=== PATIENT | female | born 1955 | race Caucasian/White ===

== ENCOUNTER → 2019-08-08 13:44 | Outpatient (CLI) | payer BC, SELFPAY ==
--- NOTE | 2019-08-08 | DI.MRI.S_ITS ---
PROCEDURE: MR WRIST RT WO/W CON INDICATIONS: RIGHT WRIST PAIN TECHNIQUE: Noncontrast coronal proton density fast spin echo and T2 fast spin echo with fat saturation; coronal 3-D gradient echo, axial T1 spin echo and T2 fast spin echo with fat saturation, axial T1 spin echo with fat saturation, sagittal T1 spin echo through the wrist. Post-contrast axial, coronal, and sagittal T1 spin echo with fat saturation through the wrist. COMPARISON: None. FINDINGS: Image quality: Excellent. Bones and cartilage: No suspicious osseous enhancement. The carpal bones are normally aligned. No bone marrow contusions or fractures. No evidence for avascular necrosis. Overlying cartilage surfaces appear normal. Carpal ligaments: The scapholunate and lunotriquetral ligaments appear intact. In the absence of intra-articular contrast, the extrinsic carpal ligaments are not well identified. On sagittal images, the pisohamate ligament appears intact. Triangular fibrocartilage complex: The triangular fibrocartilage appears intact. The adjacent meniscal homolog appears normal in the absence of intra-articular contrast. The extensor carpi ulnaris tendon is normal in location and morphology. Tendons and soft tissues: There is a slightly lobulated and predominantly T2 hyperintense and T1 hypointense lesion with well-defined capsule is soft tissue over ulnar aspect of right wrist and measures up to 2.5 x 2.5 x 3.6 cm in its largest transverse, AP and craniocaudal dimensions. After IV contrast infusion, there is fairly homogeneous contrast enhancement within this structure. There is mass effect on the adjacent flexor carpi ulnaris tendon and flexor digitorum profundus tendon. The carpal tunnel structures appear normal, including the median nerve. The ulnar nerve appears normal within Guyon's canal. All six extensor tendon compartments demonstrate normal morphology, without pathologic tendon sheath fluid. IMPRESSION: 1. Encapsulated and fairly homogeneously enhancing soft tissue mass over ulnar aspect of right wrist measures 2.5 x 2.5 x 3.6 cm in size with mass effect on the adjacent flexor tendons as above. 2. No underlying tendon or muscle involvement is seen. No adjacent osseous involvement is noted. No marrow edema. No fracture or dislocation. No abnormal intraosseous enhancement. 3. Wrist tendons and ligaments are grossly intact. Angula fibrocartilage complex is grossly intact. Consider excisional biopsy of this lesion for more definitive diagnosis. Dictated by: Vincenzo Powell M.D. on 08/08/2019 at 16:50 Approved by: Vincenzo Powell M.D. on 08/08/2019 at 16:59
== END ==
PROVIDERS: Referring Provider Orthopaedic Surgery; Visit Provider Orthopaedic Surgery
DX: M25.531 Pain in right wrist (principal); M25.831 Other specified joint disorders, right wrist
CPT/HCPCS: 73223; A9579

== ENCOUNTER → 2020-01-07 12:30 | Outpatient (CLI) | payer BC, SELFPAY ==
--- NOTE | 2020-01-07 | DI.MRI.S_ITS ---
PROCEDURE: MR CERVICAL SPINE WO CON INDICATIONS: Neurofibromatosis, unspecified TECHNIQUE: Noncontrast sagittal T1 spin echo and T2 fast spin echo, sagittal STIR, foraminal oblique sagittal T2 fast spin echo, and axial gradient echo or T2 fast spin echo through the cervical spine. COMPARISON: None. FINDINGS: Image quality: Excellent. Alignment and Curvature: There is C4-C5 anterolisthesis Bone Marrow: Mild reactive endplate changes noted adjacent C4-C5, C5-C6, C6-C7 and C7-T1 discs. Spinal Cord: Visualized spinal cord has normal size and signal. No cerebellar tonsillar herniation. Paraspinous Soft Tissues: No paravertebral masses. Prevertebral soft tissues are normal in thickness. C2-C3: Loss of disc signal. Mild bilateral facet hypertrophy. No central stenosis. Mild bilateral neural foraminal narrowing. No neural compression. C3-C4: Loss of disc signal. Mild, diffuse disc bulge. Mild bilateral facet hypertrophy. No central stenosis. Severe bilateral neural foraminal narrowing with compression of the exiting C4 nerve roots. C4-C5: Loss of disc signal. Mild, diffuse disc bulge. Moderate right and mild left facet hypertrophy. Mild bilateral uncovertebral joint hypertrophy. Moderate narrowing of the central canal. Severe bilateral neural foraminal narrowing with compression of the exiting C5 nerve roots. C5-C6: Loss of disc signal and height. Moderate, diffuse disc bulge. Mild bilateral facet hypertrophy. Moderate right and mild left uncovertebral joint hypertrophy. Moderate narrowing of the central canal. Severe right and moderate left neural foraminal narrowing with compression of the exiting right C6 nerve root. C6-C7: Loss of disc signal and height. Mild to moderate diffuse disc bulge. Mild bilateral facet hypertrophy. Mild bilateral uncovertebral joint hypertrophy. Moderate narrowing of the central canal. Moderate bilateral neural foraminal narrowing. No neural compression. C7-T1: Loss of disc signal. Mild, diffuse disc bulge. No central stenosis. Mild bilateral facet hypertrophy. Mild right and moderate left neural foraminal narrowing. No neural compression. IMPRESSION: 1. Multilevel degenerative disc disease. 2. Multilevel facet and uncovertebral arthropathy. 3. No significant central canal narrowing. 4. Severe bilateral C3-C4 and C4-C5 neural foraminal narrowing with compression of the exiting bilateral C4 nerve roots and exiting bilateral C5 nerve roots. Severe right C5-C6 neural foraminal narrowing with compression of the exiting right C6 nerve root Dictated by: Alicia Goodrich MD, PhD on 01/09/2020 at 12:41 Approved by: Alicia Goodrich MD, PhD on 01/09/2020 at 12:53
== END ==
PROVIDERS: PCP Nurse Practitioner Gerontology; Referring Provider Orthopaedic Surgery Orthopaedic Surgery of the Spine; Visit Provider Orthopaedic Surgery Orthopaedic Surgery of the Spine
DX: Q85.00 Neurofibromatosis, unspecified (principal); M50.31 Other cervical disc degeneration, high cervical region; M48.02 Spinal stenosis, cervical region; M47.812 Spondylosis without myelopathy or radiculopathy, cervical region; M43.12 Spondylolisthesis, cervical region
CPT/HCPCS: 72141

== ENCOUNTER → 2021-06-07 10:08 | Outpatient (CLI) | payer BC, SELFPAY ==
--- NOTE | 2021-06-07 10:10 | DI.MRI.S_ITS ---
PROCEDURE: MR LOWER LEG LT WO/W CON INDICATIONS: LEFT LEG NEUROPATHIC PAIN TECHNIQUE: Noncontrast coronal T1 spin echo and STIR, sagittal T1 spin echo with fat saturation and STIR, axial T1 spin echo and T2 fast spin echo with fat saturation. After the administration of contrast, axial/sagittal/coronal T1 spin echo with fat saturation through the right thigh. COMPARISON: None. FINDINGS: Image quality: Excellent. Bones: Mild to moderate left hip joint osteoarthritic changes are seen. There is no fracture or dislocation. No marrow edema is seen. No evidence of avascular necrosis of femoral head. The overlying cortex appears intact. No periosteal reaction. No abnormal intraosseous enhancement. Soft tissues: There is a well-circumscribed oval T2 hyperintense and T1 hypointense structure seen in deep soft tissue of posterior left upper thigh and measures up to 1.1 x 0.9 x 1.3 cm in size series 7, image 35 and series 11, image 7. This lesion is situated between semitendinosis and long head of biceps femorals muscle without definite adjacent muscle involvement. There is also a well-circumscribed T2 hyperintense and T1 hypointense structure within vastus medialis muscle and measures 0.9 x 0.7 x 1 cm in size without adjacent muscle signal abnormality series 8, image 26 and series 11, image 16. There is suggestion of enhancement seen in the above-mentioned structures. Rest of the scanned muscles demonstrate normal overall bulk and internal signal. No other area of abnormal soft tissue enhancement. IMPRESSION: 1. 2 oval well-circumscribed T2 hyperintense and T1 hypointense structure seen in posterior upper thigh soft tissue and within distal left vastus medialis muscle as described above. There is suggestion of homogeneous enhancement in the above-mentioned structures. Finding may represent soft tissue and intramuscular ganglion given patient's history of neuropathic pain. No other enhancing soft tissue lesion is seen. No other muscle or tendon signal abnormality is noted. 2. Left hip and left knee joint osteoarthritis. No suspicious intraosseous lesion or abnormal intraosseous enhancement. No evidence of avascular necrosis of femoral head. Dictated by: Vincenzo Powell M.D. on 06/10/2021 at 8:40 Approved by: Vincenzo Powell M.D. on 06/10/2021 at 8:59
--- NOTE | 2021-06-07 10:10 | DI.MRI.S_ITS ---
PROCEDURE: MR LUMBAR SPINE WO/W CON INDICATIONS: LEFT LEG NEUROPATHIC PAIN TECHNIQUE: Noncontrast sagittal T1 spin echo and T2 fast spin echo, sagittal STIR, axial T1 and T2 fast spin echo through the lumbar spine. In cases with scoliosis, additional coronal T2 fast spin echo may be performed. After the administration of contrast, sagittal and axial T1 spin echo with fat saturation through the lumbar spine. COMPARISON: None. FINDINGS: Image quality: Excellent. Alignment and curvature: Mild levoconvex scoliotic curvature is noted. Minimal L2-L3 anterolisthesis is seen. There is minimal retrolisthesis at L3-L4. Mild grade 1 anterolisthesis is seen at the L5-S1 level. A left-sided pars defect is suspected, yet not well seen. Marrow: Marrow is of normal overall signal. No acute vertebral body compression fractures. No suspicious marrow enhancement. Spinal cord: Conus medullaris terminates at the L1 level. Visualized spinal cord demonstrates normal signal, without suspicious enhancement. Enhancing intradural, extramedullary nodules are seen amongst the nerve roots of the cauda equina, which are best demonstrated on the sagittal postcontrast images, as on series 11 image 10, with 1 nodule seen at the inferior L1 level measuring 8 mm and an additional smaller nodule measuring 3-4 mm at the inferior L2 level. Paraspinous soft tissues: Within the left paraspinous musculature, as on series 12, image 22, there is a nodule which is hyperintense on postcontrast T1 weighted imaging and measures 2.3 x 2.1 cm in greatest axial dimension, with a craniocaudal extent of 2.9 cm. This nodule is only minimally hyperintense on T2 weighted images. T12-L1: Normal appearance. L1-L2: Normal appearance. L2-L3: Mild loss of disc height is seen. Loss of disc signal is seen. Moderate disc bulge is seen. There is a superimposed central disc protrusion. At least moderate facet hypertrophy is seen. There is moderate right-sided and moderate to severe left-sided neural foraminal narrowing seen. At least moderate central canal narrowing is seen, as on series 6, image 16. L3-L4: There is at least moderate loss of disc height and disc signal seen. Moderate disc bulge is seen. There is a superimposed central disc protrusion. At least moderate facet hypertrophy is seen. There is moderate to severe right-sided neural foraminal narrowing seen, with associated compression upon the exiting right L3 nerve root. There is moderate left-sided neural foraminal narrowing seen. Moderate central canal narrowing is seen. L4-L5: Moderate to severe loss of disc height and disc signal can be seen. Moderate generalized disc bulge is seen. There is moderate right-sided and [id number] left-sided facet hypertrophy seen. There is moderate to severe left-sided and at least moderate right-sided neural foraminal narrowing seen. Moderate central canal narrowing is seen. L5-S1: Moderate loss of disc height is seen. Loss of disc signal is seen. Moderate generalized disc bulge is seen. Bridging endplate osteophytes are seen. There is moderate to prominent right-sided and moderate left-sided facet hypertrophy seen. There is moderate to severe bilateral neural foraminal narrowing seen. There is a degree of compression seen upon the exiting nerve roots. Mild central canal narrowing is seen. IMPRESSION: There are 2 enhancing intradural, extramedullary masses. Given the appearance and the age of the patient, metastasis is suspected. However, differential diagnosis would also include a nerve sheath tumor, such as neurofibroma or schwannoma. Please correlate with known patient history. If this patient does not already have a known diagnosis, then additional workup is recommended. Unless there is a known primary tumor, please consider chest abdomen pelvis CT as well as MRI of the brain, cervical spine, and thoracic spine (without and with contrast). There is a nodule within the left paraspinous musculature that measures up to 2.9 cm. This likely enhances, although no precontrast images through the area are available. Scrutiny should be given to this focus on CT imaging. If clinically appropriate, this nodule is likely amenable to percutaneous biopsy. Multiple levels of lumbar spine degenerative change are seen, which are worst inferiorly. Dictated by: Andrés Acevedo M.D. on 06/07/2021 at 10:44 Approved by: Andrés Acevedo M.D. on 06/07/2021 at 10:57
== END ==
PROVIDERS: PCP Neurological Surgery; Referring Provider Neurological Surgery; Visit Provider Neurological Surgery
DX: M47.816 Spondylosis without myelopathy or radiculopathy, lumbar region (principal); M47.817 Spondylosis without myelopathy or radiculopathy, lumbosacral region; G62.9 Polyneuropathy, unspecified; G95.9 Disease of spinal cord, unspecified; M16.12 Unilateral primary osteoarthritis, left hip; M17.12 Unilateral primary osteoarthritis, left knee; M79.605 Pain in left leg
CPT/HCPCS: 72158; 73720

== ENCOUNTER → 2022-08-29 16:19 | Outpatient (CLI) | payer BC, SELFPAY ==
--- NOTE | 2022-08-29 16:23 | DI.MRI.S_ITS ---
PROCEDURE: MR LUMBAR SPINE WO/W CON INDICATIONS: 66-year-old female with pain at site of prior schwannoma resection. History of multiple schwannomas TECHNIQUE: Noncontrast sagittal T1 spin echo and T2 fast spin echo, sagittal STIR, axial T1 and T2 fast spin echo through the lumbar spine. In cases with scoliosis, additional coronal T2 fast spin echo may be performed. After the administration of contrast, sagittal and axial T1 spin echo with fat saturation through the lumbar spine. COMPARISON: Located Within [facility], MR, MR LUMBAR SPINE WO/W CON, 06/07/2021, 10:28. FINDINGS: Image quality: Excellent. Alignment and curvature: Bilateral L5 pars defects associated with grade 1 anterior spondylolisthesis, similar to the prior study Marrow: Marrow is of normal overall signal. No acute vertebral body compression fractures. No suspicious marrow enhancement. Spinal cord: Conus medullaris terminates at the L1 level. Visualized spinal cord demonstrates normal signal, without suspicious enhancement. Previously described intradural extramedullary nodules in the cauda equina similar to the prior exam, largest measuring 8 mm in diameter, similar prior Paraspinous soft tissues: Within the left posterior paraspinal musculature, there is an ovoid enhancing mass lesion consistent with schwannoma the level L4 measuring 2.3 x 2.5 x 3.1 cm, previously 2.3 x 2.1 x 2.9 cm. There is evidence of prior midline surgery at the thoracolumbar junction including decompressive laminectomy defects at T11 and T12 T12-L1: Normal appearance. L1-L2: Normal appearance. L2-L3: A disc space narrowing hypertrophic facet joints combined with ligamentum flavum laxity results in moderate central stenosis. Moderate left and mild right foraminal stenosis L3-L4: Disc space narrowing with circumferential disc bulge and hypertrophic facet joints results in mild central stenosis. Moderate bilateral foraminal stenosis. L4-L5: No central stenosis present. Moderate bilateral foraminal stenosis greater on the left L5-S1: Disc space narrowing with circumferential disc bulge and hypertrophic facet joints present. Moderate bilateral foraminal stenosis. No central stenosis IMPRESSION: 1. Enhancing ovoid soft tissue mass lesion consistent with schwannoma the posterior paraspinal musculature is slightly larger than the prior exam. 2. Intradural extramedullary enhancing nodules in the cauda equina are stable, and also consistent with given history of schwannoma. 3. Multilevel degenerative disc disease and arthropathy results in varying degrees of central and foraminal stenosis, unchanged. Approved by: Aleksander Tse M.D. on 09/01/2022 at 10:09
--- NOTE | 2022-08-29 16:23 | DI.MRI.S_ITS ---
PROCEDURE: MR LOWER LEG LT WO/W CON INDICATIONS: Benign neoplasm of peripheral nerves TECHNIQUE: Noncontrast coronal T1 spin echo and STIR, sagittal T1 spin echo with fat saturation and STIR, axial T1 spin echo and T2 fast spin echo with fat saturation. After the administration of contrast, axial/sagittal/coronal T1 spin echo with fat saturation through the left. COMPARISON: [facility], MR, MR LOWER LEG LT WO/W CON, 06/07/2021, 10:49. FINDINGS: Image quality: Excellent. Bones: The visualized bone marrow demonstrates normal signal on all sequences. The overlying cortex appears intact. No abnormal intraosseous enhancement. 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 On the left 2 lesions are noted. The 1st involving the proximal aspect of the calf lateral to the fibula measures 1.4 cm in maximal dimension. The 2nd more inferiorly of and posteriorly measures 1.3 cm in maximal dimension. On the right 2 lesions are also noted . 1 just inferior to the fibular head medially measuring 1.3 cm in maximal dimension and a 2nd involving the mid calf posterior to the tibia measuring 0.9 cm in maximal dimension. IMPRESSION: 1. Lesions as described above involving both lower legs 2 on the right and 2 on the left. 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 Dictated by: Benji Garrido M.D. on 09/01/2022 at 9:29 Approved by: Benji Garrido M.D. on 09/01/2022 at 9:59
== END ==
PROVIDERS: PCP Neurological Surgery; Referring Provider Neurological Surgery; Visit Provider Neurological Surgery
DX: D36.10 Benign neoplasm of peripheral nerves and autonomic nervous system, unspecified (principal); M51.36 Other intervertebral disc degeneration, lumbar region; M47.816 Spondylosis without myelopathy or radiculopathy, lumbar region
CPT/HCPCS: 72158; 73720; A9579

== ENCOUNTER → 2022-10-08 11:52 | Outpatient (CLI) | payer MEDICARE, BC, SELFPAY ==
--- NOTE | 2022-10-08 | DI.MRI.S_ITS ---
PROCEDURE: MR PELIS WO/W CON INDICATIONS: benign neoplasm of peripheral nerves TECHNIQUE: Noncontrast coronal T1 spin echo and STIR, sagittal T1 spin echo with fat saturation and STIR, axial T1 spin echo and T2 fast spin echo with fat saturation. After the administration of contrast, axial/sagittal/coronal T1 spin echo with fat saturation through the pelvis . COMPARISON: None. FINDINGS: Image quality: Excellent. Bones: The visualized bone marrow demonstrates normal signal on all sequences. The overlying cortex appears intact. No abnormal intraosseous enhancement. Soft tissues: Deep to the marker lies the left sacroiliac joint. No adjacent mass. Multiple enhancing soft tissue masses, likely peripheral nerve sheath tumors. These include: -1.3 centimeter mass in the anterior right leg musculature (series 7, image 44). -2.5 centimeters in the left paraspinous musculature (series 7, image 10). -1.7 centimeter right psoas mass (series 7, image 16). -1.8 centimeter right ileopsoas mass (series 7, image 20). IMPRESSION: Deep to the marker lies the left sacroiliac joint. No adjacent mass. Multiple enhancing superficial and deep lesions, likely nerve sheath tumors. Dictated by: Gilbert Rahman M.D. on 10/08/2022 at 16:44 Approved by: Gilbert Rahman M.D. on 10/08/2022 at 16:47
== END ==
PROVIDERS: PCP Neurological Surgery; Referring Provider Neurological Surgery; Visit Provider Neurological Surgery
DX: D36.13 Benign neoplasm of peripheral nerves and autonomic nervous system of lower limb, including hip (principal)
CPT/HCPCS: 72197; A9579